=== PATIENT | female | born 2000 | race Caucasian/White ===

== ENCOUNTER 2024-09-21 17:49 | Emergency (ER) | payer OTHER, SELFPAY ==
[2024-09-21 17:59] VITALS: BP 101/55; PULSE 66; RESP 20; TEMP 36.4; O2SAT 100
--- NOTE | 2024-09-21 18:01 | ED_ITS ---
HPI - Abdominal Pain General Chief Complaint: Nausea/Vomiting/Diarrhea Stated Complaint: Vomiting Time Seen by Provider: 09/21/24 18:01 Source: patient and RN notes reviewed Mode of arrival: ambulatory Limitations: no limitations History of Present Illness HPI narrative: 24 y/o female presented for c/o nausea and vomiting. Onset yesterday. Pt says she has been able to tolerate fluids today. Denies abdominal pain, fever, diarrhea, constipation or hematemesis. LMP current. Endorses history ADHD, and started a new medication recently. Also Hx celiac disease. Related Data Home Medications ?Medication ?Instructions ?Recorded ?Confirmed ?Last Taken ?Type bupropion HCl 75 mg tablet mg PO 09/21/24 Unknown History fluoxetine 40 mg capsule mg 09/21/24 Unknown History hydroxyzine HCl 10 mg tablet mg 09/21/24 Unknown History lamotrigine 25 mg tablet mg 09/21/24 Unknown History lisdexamfetamine 20 mg capsule mg 09/21/24 Unknown History (Vyvanse) norelgestromin 150 mcg-e.estradiol patch 09/21/24 Unknown History 35 mcg/24 hr weekly transderm patch (Xulane) paroxetine HCl 20 mg tablet mg PO 09/21/24 Unknown History quetiapine 50 mg tablet mg 09/21/24 Unknown History Allergies Allergy/AdvReac Type Severity Reaction Status Date / Time No Known Allergies Allergy Verified 09/21/24 18:05 Review of Systems Review of Systems: CONSTITUTIONAL: Denies body aches, fever, chills ENT: Denies rhinorrhea, congestion CARDIOVASCULAR: Denies chest pain, palpitations, or edema. RESPIRATORY: Denies cough or dyspnea. GASTROINTESTINAL: Endorses nausea, vomiting, . Denies abdominal pain, hematoch ezia, melena, diarrhea, hematemesis GENITOURINARY: Denies dysuria, hematuria, or CVA tenderness. SKIN: Denies rash MUSCULOSKELETAL: Denies back pain, joint pain, or myalgia. NEUROLOGIC: Denies headache, numbness, tingling, or weakness. All systems reviewed & are unremarkable except as noted in HPI and below PMFSH Comments At time of signature, I have reviewed and agree with nursing past medical, surgical, social and family history unless otherwise noted. Please see nursing chart for further information. There is no relevant family history pertinent to the presenting complaint Exam Narrative: GENERAL: Well-appearing, and in no acute distress. EYES: EOMI. Conjunctivae normal. ENT: Mucous membranes pink and moist. CHEST: No respiratory distress. Clear to auscultation. HEART: Regular rate and rhythm. No murmur appreciated. Normal peripheral pulses. ABDOMEN: abd soft, nondistended, normal active bowel sounds. Nontender abdomen; No guarding, rebound tenderness, asymmetry EXTREMITIES: Normal range of motion. No edema. SKIN: Warm, dry, no rash. Capillary refill normal. Normal skin turgor. NEURO: No focal deficits. Alert and oriented x3. Course Course Emergency Course: Patient is aware of diagnosis, understands and agrees to treatment plan. Anticipatory guidance given. Patient agrees to follow-up as directed and is aware of reasons to seek care at the emergency department. Portions of this record may have been created with voice recognition software Level of Care: Express Care Visit MDM - Abdominal Pain MDM Narrative Medical decision making narrative: Discussed physical exam findings and neg flu results. VSS. Tolerating PO. Advised supportive measures and signs/symptoms to go to the ER. Pt is appropriate for outpt treatment and f/u. Differential Diagnosis Differential diagnosis: Likely abdominal pain, acute appendicitis, calculus of kidney, constipation, diverticulitis, gastroenteritis, pancreatitis, small bowel obstruction and other (viral infection) Discharge Plan Discharge Clinical Impression: Nausea & vomiting Patient Disposition: Home Condition: Stable Instructions: Antibiotic Form, Acute Nausea and Vomiting (ED) Additional Instructions: Stay hydrated. Take small sips of fluid containing electrolytes frequently. Clear liquids (broth, jello, tea, sprite, pedialyte) [place] foods (bananas, rice, applesauce, toast, crackers) Avoid fatty, greasy, fried or spicy foods. Limit dairy until symptoms are improved. You should go to the hospital if you experience persistent nausea and vomiting that does not resolve and does not allow you to tolerate any food or fluids, fevers, increasing abdominal pain, persistent diarrhea, dizziness, fainting, or for any other concerns. Follow up with primary care provider in 3 days. Patient Language: Nicarag[place] Prescriptions: No Action fluoxetine 40 mg capsule lamotrigine 25 mg tablet paroxetine HCl 20 mg tablet PO bupropion HCl 75 mg tablet PO hydroxyzine HCl 10 mg tablet norelgestromin-ethin.estradiol [Xulane] 150-35 mcg/24 hr patch weekly quetiapine 50 mg tablet lisdexamfetamine [Vyvanse] 20 mg capsule Follow-up/Referrals: PHYSICIAN,COOK SUPERVISOR [Primary Care Provider] - Stand Alone Forms: Work/School Release IP Time of Disposition: 18:23
[2024-09-21 18:24] LABS: EDINFLUASCREEN Negative (Negative); EDINFLUBSCREEN Negative (Negative)
== END 2024-09-21 18:34 | disposition home or self-care (01) ==
PROVIDERS: Emergency Provider Nurse Practitioner Family
DX: R11.2 Nausea with vomiting, unspecified (principal); K90.0 Celiac disease; F90.9 Attention-deficit hyperactivity disorder, unspecified type; K21.9 Gastro-esophageal reflux disease without esophagitis
CPT/HCPCS: 87804; 99202; G0463

== ENCOUNTER 2025-02-07 14:23 | Emergency (ER) | payer OTHER, SELFPAY ==
[2025-02-07 14:30] VITALS: BP 97/65; PULSE 78; RESP 18; TEMP 36.8; O2SAT 100
--- NOTE | 2025-02-07 14:31 | ED_ITS ---
HPI - Nausea/Vomiting/Diarrhea General Chief complaint: Nausea/Vomiting/Diarrhea Stated complaint: stomach hurting, nausea Patient presents to the [facility] with complaints of nausea, vomiting, diarrhea that began yesterday. Patient reports having to leave work early today due to symptoms. Reports roommate did just get over similar symptoms. Roommate was not evaluated for anything got over symptoms on their own. Reports patient has been keeping water down today. Denies fever, chills, body aches, headache, dizziness, or significant abdominal pain. Related Data Home Medications ?Medication ?Instructions ?Recorded ?Confirmed ?Last Taken ?Type bupropion HCl 75 mg tablet mg PO 09/21/24 Unknown His tory fluoxetine 40 mg capsule mg 09/21/24 Unknown History hydroxyzine HCl 10 mg tablet mg 09/21/24 Unknown Hist ory lamotrigine 25 mg tablet mg 09/21/24 Unknown History lisdexamfetamine 20 mg capsule mg 09/21/24 Unknown Hi story (Vyvanse) norelgestromin 150 mcg-e.estradiol patch 09/21/24 Unk nown History 35 mcg/24 hr weekly transderm patch (Xulane) paroxetine HCl 20 mg tablet mg PO 09/21/24 Unknown Hi story quetiapine 50 mg tablet mg 09/21/24 Unknown History Allergies Allergy/AdvReac Type Severity Reaction Status Date / Time No Known Allergies Allergy Verified 09/21/24 18:05 Review of Systems Constitutional: Constitutional: Reports as per HPI, Denies chills, Denies fatigue, Denies fever(s) and Denies weakness Eyes: Eyes: Reports no additional eye complaints ENT: Reports as per HPI, Denies vertigo, Denies dizziness, Denies nasal congestion and Denies sore throat Cardiovascular: Cardiovascular: Reports no additional cardiovascular complaints Respiratory: Respiratory: Reports no additional respiratory complaints Gastrointestinal: Gastrointestinal: Reports as per HPI, Denies abdominal pain, Denies bloating, Denies constipation, Denies heartburn, Reports diarrhea, Reports nausea and Reports vomiting Genitourinary: Genitourinary: Reports no additional female genitourinary complaints Musculoskeletal: Musculoskeletal: Reports as per HPI, Denies back pain and Denies myalgias Integumentary/Breasts: Skin/Breast: Reports as per HPI, Denies pruritus, Denies erythema, Denies rash and Denies skin ulcer Neurologic: Reports as per HPI, Denies vertigo, Denies dizziness, Denies focal weakness and Denies weakness Psychiatric: Psychiatric: Reports no additional psychiatric complaints Endocrine: Endocrine: Reports no additional endocrine complaints Hematologic/Lymphatic: Hematologic/Lymphatic: Reports no additional hematologic/lymphatic complaints Allergic/Immunologic: Allergic/Immunologic: Reports no additional allergic/immunologic complaints Exam Const: General: healthy appearing and no acute distress Nutritional Appearance: well nourished Orientation/consciousness: patient oriented x3 Limitations: no limitations Neck: Neck: normal visual inspection and no lymphadenopathy Resp: Effort & Inspection: normal respiratory effort Auscultation: clear to auscultation bilaterally Cardio: Rate: regular rate Rhythm: regular rhythm GI: Inspection: non-distended GI Palp: Yes Soft to palpation, No Tenderness to palpation present (GI), No Guarding due to palpation present (GI), No Rigid due to palpation, No Hernia present, No Palpable mass present and No Rebound tenderness present Auscultation: normal bowel sounds : General: Yes bladder normal to palpation and Yes no CVA tenderness Skin: General skin exam: normal color Rashes: no rashes Wounds: no wounds Neuro: General: patient oriented x3 and moves all extremities Speech: normal speech Gait exam (Neuro): Normal gait present Extrem: General: normal to inspection, no clubbing, cyanosis or edema and no pedal edema Psych: Mental Status: mental status grossly normal Affect: normal affect Attitude: cooperative Course Course Level of Care: Express Care Visit Vital Signs Vital signs: Vital Signs Temperature 98.3 F 02/07/25 14:30 Pulse Rate 78 02/07/25 14:30 Respiratory Rate 18 02/07/25 14:30 Blood Pressure 97/5 L 02/07/25 14:30 Pulse Oximetry 100 02/07/25 14:30 Temperature 98.3 F 02/07/25 14:30 Pulse Rate 78 02/07/25 14:30 Respiratory Rate 18 02/07/25 14:30 Blood Pressure 97/5 L 02/07/25 14:30 Pulse Oximetry 100 02/07/25 14:30 MDM - Nausea/Vomiting/Diarrhea MDM Narrative Medical decision making narrative: No significant abdominal tenderness noted. Able to keep down water recommended rest and supportive care The patient was evaluated by myself in the express care. History is obtained from patient who is an independent historian and physical exam was performed. Available medical records were reviewed at this time. Exam findings show no acute concerns or changes; patient is non-toxic appearing and is in no distress. Patient is appropriate for outpatient treatment and follow-up. I have evaluated and discussed social determinants of health with the patient that could potentially impact subsequent diagnosis and treatment plans. Differential diagnosis and treatment plan were discussed with the patient. Patient agrees with discussion and after shared medical decision making agrees with plan of care. All questions were answered to the patient's satisfaction. Differential Diagnosis Differential diagnosis: Likely traveler's diarrhea, food poisoning, gastroenteritis, drug-induced nausea and vomiting and dehydration Medical Records Attestation: I reviewed the patient's medical records. Discharge Plan Discharge Clinical Impression: Gastroenteritis Patient Disposition: Home Condition: Stable Instructions: Antibiotic Form, Clear Liquid Diet (ED), Acute Nausea and Vomiting (ED) Additional Instructions: Start with a clear liquid diet and slowly advanced as tolerated. Recommending lots of rest may use Pepto-Bismol, Imodium, and Pepcid along with the Zofran sent in by this office. If you notice any significant abdominal pain, fever, chills, body aches, or are unable to keep any food down did recommend going to the emergency room for further evaluation of symptoms. Patient Language: Ukrainian Prescriptions: New ondansetron 4 mg tablet,disintegrating 4 mg PO Q8H PRN (Reason: nausea and vomiting) Qty: 20 0RF No Action fluoxetine 40 mg capsule lamotrigine 25 mg tablet paroxetine HCl 20 mg tablet PO bupropion HCl 75 mg tablet PO hydroxyzine HCl 10 mg tablet norelgestromin-ethin.estradiol [Xulane] 150-35 mcg/24 hr patch weekly quetiapine 50 mg tablet lisdexamfetamine [Vyvanse] 20 mg capsule Follow-up/Referrals: PHYSICIAN,TRIAL ATTORNEY [Primary Care Provider, Internal Medicine] Stand Alone Forms: Work/School Release IP Time of Disposition: 14:39
== END 2025-02-07 14:47 | disposition home or self-care (01) ==
PROVIDERS: Emergency Provider Nurse Practitioner Family
DX: K52.9 Noninfective gastroenteritis and colitis, unspecified (principal)
CPT/HCPCS: 99213; G0463